=== PATIENT | male | born 1960 | race Caucasian/White ===

== ENCOUNTER 2022-01-25 18:45 | Emergency (ER) | payer BC ==
[2022-01-25 19:27] LABS: HEMOGLOBIN 15.2 gm/dl (14.0-17.5); RED BLOOD COUNT 5.22 M/UL (4.20-5.50); WHITE BLOOD COUNT 3.8 K/UL (4.5-11.0)
[2022-01-25 19:47] LABS: BUN/CREATININE RATIO 16 (0-10)
[2022-01-25] MEDS ORDERED: ZOFRAN ODT 4 MG4 MG SL (22:27)
== END 2022-01-25 23:00 | disposition home or self-care (01) ==
LOC: ER1 18:45
PROVIDERS: Physician Assistant Medical
DX: U07.1 COVID-19 (principal); E86.0 Dehydration
CPT/HCPCS: 71045; 80053; 83605; 85025; 87040; 96374; 99284; J2405; Q9967; U0002